=== PATIENT | male | born 1995 | race Caucasian/White ===

== ENCOUNTER 2020-04-26 23:01 | Emergency (ER) | payer OTHER ==
[~2020-04-26] VITALS: Ht 160 cm; Wt 55.0 kg
[2020-04-26] MEDS ORDERED: BACITRACIN 15GM TUBE TOP ONE (23:45)
[2020-04-26] MEDS ORDERED: ACETAMINOPHEN WITH CODEINE 300/30MG TABLET PO ONE (23:45)
[2020-04-26 23:54] VITALS: BP 135/72
== END 2020-04-27 02:15 | disposition home or self-care (01) ==
LOC: ER 23:01
DX: S60.212A Contusion of left wrist, initial encounter (principal); S60.211A Contusion of right wrist, initial encounter; S00.83XA Contusion of other part of head, initial encounter; W18.39XA Other fall on same level, initial encounter; Y93.89 Activity, other specified; Y92.89 Other specified places as the place of occurrence of the external cause; Y99.8 Other external cause status; M79.18 Myalgia, other site
CPT/HCPCS: 71111; 73110; 73130; 99284